=== PATIENT | female | born 1975 | race Caucasian/White ===

== ENCOUNTER → 2016-12-21 | Outpatient (CLI) | payer OTHER ==
[~2016-12-21] MED LIST: ASPIRIN EC81 MG PO; LAMICTAL25 MG PO; LIPITOR40 MG PO; MOBIC7.5 MG PO; NEURONTIN 300300 MG PO; PROTONIX40 MG PO; TOPROL XL100 MG PO; VISTARIL 50 MG50 MG PO
== END ==
LOC: RAD 13:15
DX: M17.0 Bilateral primary osteoarthritis of knee (principal)
CPT/HCPCS: 73560

== ENCOUNTER 2022-05-20 18:39 | Emergency (ER) | payer OTHER ==
[~2022-05-20 18:39] MED LIST changes: +ANTIVERT 25MG T25 MG PO; +FLOMAX 0.4 MG0.4 MG PO; +HYDROCODON-ACE1 EAC4 PO; +IBU600 MG PO; +ZOFRAN ODT 4 MG4 MG PO; +ZOFRAN ODT 4 MG4 MG SL; +ZOFRAN4 MG PO
[2022-05-20 19:34] LABS: HEMOGLOBIN 12.4 gm/dl (12.3-15.3); RED BLOOD COUNT 4.3 M/UL (4.00-5.10); WHITE BLOOD COUNT 9.3 K/UL (4.5-11.0)
[2022-05-20 19:54] LABS: BUN/CREATININE RATIO 12 (0-10)
[2022-05-20] MEDS ORDERED: ZOFRAN 4 MG TAB4 MG PO (20:42)
[2022-05-20] MEDS ORDERED: TORADOL 10 MG T10 MG PO (20:42)
== END 2022-05-20 21:16 | disposition home or self-care (01) ==
LOC: ER1 18:39
PROVIDERS: Physician Assistant Medical
DX: N13.2 Hydronephrosis with renal and ureteral calculous obstruction (principal); Z88.1 Allergy status to other antibiotic agents; Z88.0 Allergy status to penicillin; Z88.8 Allergy status to other drugs, medicaments and biological substances
CPT/HCPCS: 80053; 81001; 85025; 99284